=== PATIENT | male | born 1965 | race Caucasian/White ===

== ENCOUNTER → 2017-12-28 | Outpatient (CLI) | payer OTHER ==
--- NOTE | 2017-12-28 23:11 | MR ---
EXAMINATION TYPE: MR knee RT wo con DATE OF EXAM: 12/28/2017 COMPARISON: Outside right knee x-ray December 16, 2017 HISTORY: Rt knee pain, injured 3 weeks ago per patient. TECHNIQUE: Multiplanar, multisequence images of the knee is performed without IV contrast. FINDINGS: MEDIAL MENISCUS: Anterior and posterior horns are intact without tear. LATERAL MENISCUS: Anterior horn is intact without tear. There is truncated appearance to posterior ho rn with focal defect along posterior margin appreciated on sagittal images. Displaced meniscal fragme nt felt present sagittal image 18 in the posterior intercondylar region CRUCIATE LIGAMENTS: The anterior and posterior cruciate ligaments are intact and unremarkable. COLLATERAL LIGAMENTS: The medial collateral ligament and lateral collateral ligament complex are inta ct . Mild fluid signal surrounds medial collateral ligament. EXTENSOR MECHANISM: Visualized quadriceps and patellar tendons are intact. EFFUSION: There is small suprapatellar joint effusion. POPLITEAL CYST: No popliteal/medeiros cyst. TRICOMPARTMENT SPACES: There is mild tricompartment joint space loss. There is mild is tricompartment joint space spurring. CARTILAGE: There is chondromalacia patella involving inferior patellar pole with near full-thickness cartilaginous loss appreciated. There is thinning of articular cartilage medial tibial femoral compar tment. BONE MARROW SIGNAL: No focal abnormal marrow signal is appreciated. OTHER: No additional significant abnormality is appreciated. IMPRESSION: 1. Complex displaced bucket handle type tear posterior horn of medial meniscus. 2. Background mild to moderate tricompartment degenerative changes as detailed above. 3. Small suprapatellar joint effusion. 4. Mild MCL sprain injury.
== END | disposition home or self-care (01) ==
LOC: RADMRIMAIN 16:31
PROVIDERS: ATTEND Orthopaedic Surgery
DX: S83.231A Complex tear of medial meniscus, current injury, right knee, initial encounter (principal); S83.211A Bucket-handle tear of medial meniscus, current injury, right knee, initial encounter

== ENCOUNTER → 2018-01-14 | Outpatient (CLI) | payer OTHER ==
[2018-01-14 09:11] LABS: Basophils # (A) 0.1 k/uL (0-0.2); Basophils % (A) 1 %; Eosinophils # (A) 0.2 k/uL (0-0.7); Eosinophils % (A) 2 %; HCT 45.4 % (39.0-53.0); HGB 15.2 gm/dL (13.0-17.5); Lymphocytes # (A) 2.4 k/uL (1.0-4.8); Lymphocytes % (A) 28 %; MCH 29.8 pg (25.0-35.0); MCHC 33.4 g/dL (31.0-37.0); MCV 89.4 fL (80.0-100.0); Mean Platelet Volume 7.9; Monocytes # (A) 0.5 k/uL (0-1.0); Monocytes % (A) 6 %; Neutrophils % (A) 61 %; Platelet Count 237 k/uL (150-450); RBC 5.08 m/uL (4.30-5.90); WBC 8.3 k/uL (3.8-10.6)
--- NOTE | 2018-01-14 09:14 | XR ---
EXAMINATION TYPE: XR chest 2V DATE OF EXAM: 01/14/2018 COMPARISON: NONE TECHNIQUE: PA and lateral views submitted. HISTORY: Presurgical FINDINGS: The lungs are clear and there is no pneumothorax, pleural effusion, or focal pneumonia. Hypertrophi c and degenerative change of the spine. Hyperinflation suggests COPD. No overt failure. Biapical pleu ral thickening. Atherosclerotic change aorta. IMPRESSION: 1. No acute process.
[2018-01-14 09:28] LABS: Potassium 4.2 mmol/L (3.5-5.1)
== END | disposition home or self-care (01) ==
LOC: LABPAT 08:26
PROVIDERS: ATTEND Orthopaedic Surgery
DX: Z01.818 Encounter for other preprocedural examination (principal); Z01.812 Encounter for preprocedural laboratory examination; M23.91 Unspecified internal derangement of right knee
CPT/HCPCS: 36415; 71046; 80051; 85025; 93005

== ENCOUNTER 2018-01-18 06:41 | Day surgery (SDC) | payer OTHER ==
[2018-01-13 11:21] VITALS: BMI 35.2
--- NOTE | 2018-01-17 09:00 | HP ---
HISTORY AND PHYSICAL CHIEF COMPLAINT: Right knee pain. HISTORY OF PRESENT ILLNESS: The patient is a 52-year-old male who presents with progressive right knee pain after an injury on December 03, 2017. He twisted his knee coming down a ladder. He has had pain, giving way, and swelling ever since. He notes he is limping. He denies previous problems. PAST MEDICAL HISTORY: Significant for hypertension and depression. PAST SURGICAL HISTORY: Negative. CURRENT MEDICATIONS: 1. Adderall. 2. Lisinopril. 3. Ibuprofen. ALLERGIES: He denies drug allergies. FAMILY HISTORY: Significant for cancer. SOCIAL HISTORY: Significant for 1 pack per day tobacco use and social alcohol use. REVIEW OF SYSTEMS: Sixteen point review of systems otherwise reviewed and is noncontributory. PHYSICAL EXAMINATION: On examination, the patient is approximately 6 feet tall, 260 pounds of endomorphic habitus. HEENT exam is nonfocal. Neck is supple. He has painless passive motion of the right hip. Straight leg raise is negative. Active motion right knee -6 to 120 degrees of flexion. He has mild effusion. He is tender about the lateral greater than medial joint line. Collaterals are stable. Carolyn is negative. Jessica's elicits medial and lateral pain. His distal neurovascular exam appears to be intact in the right lower extremity. MRI report for the right knee 12/28/2017 shows a bucket-handle tear of the lateral meniscus. Edema about the MCL is noted as well. IMPRESSION: 1. Right knee internal derangement with symptomatic lateral meniscal tear. 2. Increased body mass index. RECOMMENDATIONS: I talked to the patient at length regarding his treatment options. At this point, he is quite symptomatic and opts to proceed with surgery. We will plan to proceed with arthroscopic evaluation with possible partial lateral meniscectomy. We will likely perform that as an outpatient procedure. Risks and benefits were discussed at length in layman's terms. MMODL / IJN: [id number] /
[~2018-01-18 06:41] MED LIST: DEXAMETHASONE SOD PHOSPHATE 10 MG/ML 1 ML VIAL IV ONE; LACTATED RINGERS 1,000 ML IV SCH; ONDANSETRON 4 MG/2 ML VIAL IVP ONE
[2018-01-18] MEDS ORDERED: LIDOCAINE 1% 20 ML VIAL (10MG/ML) FOR IV START INTRADERMA ONE (07:14)
[2018-01-18] MEDS ORDERED: LIDOCAINE 1% INJ 10MG/ML (20 ML MDV) ONE (07:53)
[2018-01-18] MEDS ORDERED: fentaNYL (PF) 50 MCG/ML 2 ML AMP ONE (07:53)
[2018-01-18] MEDS ORDERED: ALBUTEROL INHALER 60 PUFF/8 GM INHALER INHALATION ONE (07:53)
[2018-01-18] MEDS ORDERED: MIDAZOLAM 2 MG/2 ML VIAL ONE (07:53)
[2018-01-18] MEDS ORDERED: PROPOFOL 10 MG/ML 20 ML VIAL IV ONE (07:53)
[2018-01-18] MEDS ORDERED: SUCCINYLCHOLINE CHLORIDE 100 MG/5 ML SYR IV ONE (07:53)
[2018-01-18] MEDS ORDERED: EPINEPHrine (PF) 1 ML in SODIUM CHLORIDE 0.9% IRRIGATIO 3,000 ML IRRIGATION ONE ×4 (08:01)
--- NOTE | 2018-01-18 08:52 | P.OP ---
Date of Procedure: 01/18/18 Preoperative Diagnosis: Right knee internal derangement Postoperative Diagnosis: The bucket-handle tear right knee lateral meniscus, grade 2 chondral injury distal lateral portion medial femoral condyle, grade 2 chondral injury Procedure(s) Performed: Right knee arthroscopic partial lateral meniscectomy/medial femoral chondrectomy /patellar chondroplasty Anesthesia: BRANDON Surgeon: Abdirahman Bishop Estimated Blood Loss (ml): 10 Pathology: none sent Condition: stable Disposition: PACU Indications for Procedure: The patient's a 52-year-old male who presents with progressive right knee pain and mechanical symptoms after a previous twisting injury. Clinically and by MRI he was noted to have evidence of a bucket-handle tear of the lateral meniscus. A discussion of the risks and benefits of operative intervention was made with the patient. He opted to proceed with surgery. Operative risks to include infection, neurovascular injury, development of blood clots, possible incomplete resolution of symptoms and need for subsequent procedures was discussed. Informed consent was obtained. Operative Findings: As below Description of Procedure: The patient was brought to the operating room, and after induction of general anesthesia I examined the right knee. Collaterals were stable, Carolyn was negative, and posterior drawer was negative. The right lower extremity was then prepped and draped in a normal fashion. A superior lateral portal was made through a 3 mm skin incision superior and lateral to the patella. This was used for outflow. A lateral portal was made through a 5 mm vertical skin incision lateral to the patellar tendon above the joint line. Diagnostic arthroscopy was performed. A medial portal was made through a similar incision medial to the patella tendon above the joint line. On inspection of the medial compartment, the medial meniscus was stable and intact. A grade 2 chondral injury involving the lateral aspect of the distal medial femoral condyle was noted. There was a small loose chondral flap debrided back to stable base with a motorized shaver. The remaining chondral surface was intact. On inspection of the notch, the anterior cruciate ligament was intact. A bucket-handle tear involving the lateral meniscus was noted and was flipped into the notch. This was not amenable to repair. This was debrided back to stable base with straight baskets and a motorized shaver. The remaining lateral meniscus was stable and intact. On inspection patellofemoral articulation, grade 2 chondral injury involving the medial patella facet was noted. There was a loose chondral flap debrided back to stable base with a motorized shaver. The gutters were clear of debris. The knee was then thoroughly irrigated. The portals were closed with Steri-Strips. A sterile dressing was applied in addition to a compression stocking. The patient was awoken from general anesthesia and transferred to recovery room in good condition. Blood loss was estimated at 10 mL. No complications were incurred.
[2018-01-18 09:11] VITALS: TEMP 97
[2018-01-18] MEDS: HYDROmorphone 0.5 MG/0.5 ML SYRINGE IVP PRN ×2 (09:24→09:32)
[2018-01-18] MEDS ORDERED: LACTATED RINGERS 1,000 ML IV ONE (09:47)
[2018-01-18] MEDS ORDERED: HYDROcodone/APAP 5-325MG 1 EACH TAB PO ONE (10:08)
[2018-01-18 10:27] VITALS: RESP 18
[2018-01-18 10:36] VITALS: BP 109/70; PULSE 70
== END 2018-01-18 10:43 | disposition home or self-care (01) ==
LOC: OR 06:41
PROVIDERS: ATTEND Orthopaedic Surgery
DX: S83.251A Bucket-handle tear of lateral meniscus, current injury, right knee, initial encounter (principal); X58.XXXA Exposure to other specified factors, initial encounter; M23.91 Unspecified internal derangement of right knee; I10 Essential (primary) hypertension; F32.9 Major depressive disorder, single episode, unspecified; Z79.1 Long term (current) use of non-steroidal anti-inflammatories (NSAID); Z79.899 Other long term (current) drug therapy; F17.210 Nicotine dependence, cigarettes, uncomplicated
CPT/HCPCS: 29881; J2250; J1100; J0690; J2405; J0171; J2001; J3010; J0330; J2704; J1170

== ENCOUNTER → 2021-01-20 | Outpatient (CLI) | payer MEDICARE, OTHER ==
--- NOTE | 2021-01-21 09:04 | US ---
EXAMINATION TYPE: US soft tissue head/neck DATE OF EXAM: 01/20/2021 COMPARISON: NONE CLINICAL HISTORY: R22.0 SWELLING, MASS AND LUMP. Posterior midline scalp palpable x couple of years a nd enlarging in size, headaches now. US findings at midline posterior scalp palpable: heterogeneous oval mass is noted = 4.5 x 3.8 x 1.2cm . IMPRESSION: There is a 4.5 cm heterogeneous mass in the midline posterior scalp in the region of palpable abnorma lity which is indeterminate on this examination. Neoplasm/malignancy cannot be excluded. Clinical cor relation is recommended.
== END | disposition home or self-care (01) ==
LOC: RADUSWWP 16:39
PROVIDERS: ATTEND Surgery Plastic and Reconstructive Surgery
DX: R22.0 Localized swelling, mass and lump, head (principal)
CPT/HCPCS: 76536

== ENCOUNTER → 2021-02-07 | Outpatient (CLI) | payer OTHER ==
--- NOTE | 2021-02-07 13:44 | CT ---
EXAMINATION TYPE: CT brain w con DATE OF EXAM: 02/07/2021 COMPARISON: None HISTORY: Swelling to the back of the head, without injury, marked by BB's. Tenderness at site occasi onally. CT DLP: 1202.1 mGycm Automated exposure control for dose reduction was used. CONTRAST: CT scan of the head is performed with IV Contrast, patient injected with 100 mL of Isovue 300. FINDINGS: There is no abnormal enhancing mass or midline shift identified. The ventricles and sulci are within normal limits in size. The globes are intact and the visualized sinuses are clear. There is nonspec ific 1.4 x 0.6 cm area of soft tissue density over the area of palpable marker. Could represent a sma ll hematoma or edema. Follow-up to resolution recommended. Calvarium intact. IMPRESSION: There is nonspecific 1.4 x 0.6 cm area of soft tissue density over the area of palpable marker. Could represent a small hematoma or edema. Follow-up to resolution recommended. If the finding fails to re solve consider ultrasound for further evaluation.
--- NOTE | 2021-02-07 16:01 | CT ---
EXAMINATION TYPE: CT cervical spine w con DATE OF EXAM: 02/07/2021 COMPARISON: CT brain same day HISTORY: 55-year-old male Swelling to the back of the head, without injury, marked by BB's. Tenderne ss at site occasionally. TECHNIQUE: Contiguous axial scanning of the cervical spine performed with IV Contrast, patient inject ed with 100 mL of Isovue 300. Coronal/sagittal reconstructions performed. CT DLP: 771 mGycm Automated exposure control for dose reduction was used. FINDINGS: 2 palpable markers along the right paramedian posterior base of the head demarcate an ovoid fat densi ty lesion along the superficial muscular fascia. This measures 3.8 cm wide by 1.8 cm AP by 4.2 cm aircraft accessories mechanic niocaudal. Some internal soft tissue nodularity measuring 1.4 x 0.7 cm is present. Incidental retropharyngeal course of the right ICA. There is moderate degenerative disc disease at C6-C7. Disc osteophyte complex here may cause mild jo-ann rowing of the spinal canal. Assessment is limited due to artifact from the patient's shoulders. Alignment is maintained. No acute fracture seen. Hypertrophic facet arthropathy particularly through throughout the cervical spine on the left. Uncove rtebral joint arthropathy lower cervical spine. Moderate left greater than right neural foraminal stenosis at C6-C7. There appears to be a 1.5 cm hypodense nodule right lobe of the thyroid gland at the lower pole. Thyr oid ultrasound can further evaluate. IMPRESSION: 1. AN OVOID LESION ALONG THE SUPERFICIAL MUSCULAR FASCIA OF THE RIGHT PARAMEDIAN POSTERIOR BASE OF TH E HEAD. THIS MEASURES 4.2 X 3.8 X 1.8 CM AND IS PRIMARILY FAT DENSITY BUT ALSO CONTAINS AN INTERNAL 1 .4 CM SOFT TISSUE NODULE. CONSIDER ATYPICAL LIPOMATOUS TUMOR. IF THE FINDING IS NEW OR INCREASING IN SIZE, LOW-GRADE LIPOSARCOMA IS ALSO A DIFFERENTIAL CONSIDERATION. CONSIDER ORTHOPEDIC ONCOLOGY REFERR AL FOR FURTHER WORKUP AND MANAGEMENT. 2. MODERATE SPONDYLOTIC CHANGE C6-C7 WITH MILD SPINAL CANAL STENOSIS AND MODERATE LEFT GREATER THAN R IGHT NEURAL FORAMINAL STENOSIS HERE. 3. POSSIBLE 1.5 CM RIGHT THYROID LOBE NODULE. THYROID ULTRASOUND COULD FURTHER EVALUATE.
== END | disposition home or self-care (01) ==
LOC: RADCTMAIN 11:33
PROVIDERS: ATTEND Surgery Plastic and Reconstructive Surgery
DX: M79.9 Soft tissue disorder, unspecified (principal); M79.89 Other specified soft tissue disorders; M48.02 Spinal stenosis, cervical region; M47.812 Spondylosis without myelopathy or radiculopathy, cervical region; M99.71 Connective tissue and disc stenosis of intervertebral foramina of cervical region
CPT/HCPCS: 72126; 70460; Q9967

== ENCOUNTER → 2021-02-12 | Outpatient (CLI) | payer OTHER ==
--- NOTE | 2021-02-12 15:20 | US ---
EXAMINATION TYPE: US thyroid st tissue head/neck DATE OF EXAM: 02/12/2021 COMPARISON: CT CLINICAL HISTORY: E04.1 Thyroid Nodule. Thyroid nodule visualized on CT GLAND SIZE: Right Lobe: 6.7 x 2.0 x 2.3 cm Overall Parenchyma: homogenous Left Lobe: 6.6 x 2.3 x 2.2 cm Overall Parenchyma: homogeneous Isthmus Thickness: 0.3 cm NODULES RIGHT: # of nodules measured on right: 1 1. 2.0 X 1.3 x 1.9 cm, lower, mixed cystic and solid, hypoechoic nodule, which is wider than tall, with smooth margins, without echogenic foci. Prior size: 1.5 cm Visualized on prior CT LEFT: # of nodules measured on left: 2 1. 1.4 X 0.9 x 1.1 cm, lower, solid or almost completely solid, hypoechoic nodule, which is wider t suggs tall, with smooth margins, with echogenic foci. This is considered highly suspicious, TI-RADS 5. Biopsy recommended. Prior size: No prior 2. 0.6 X 0.5 x 0.6 cm, mid, solid or almost completely solid, isoechoic nodule, which is wider dalton n tall, with ill-defined margins, without echogenic foci. Prior size: No prior ISTHMUS: # of nodules measured in the isthmus: 1. 0.6 X 0.5 x 0.7 cm solid or almost completely solid, hypoechoic nodule, which is wider than tall , with smooth margins, without echogenic foci. Prior size: No prior Bilateral neck scanned, no evidence of lymphadenopathy. Enlarged thyroid bilaterally with nodules bi laterally. IMPRESSION: Highly suspicious left lobe nodule. Biopsy recommended. 2017 ACR TI-RADS LEVEL: TI-RADS 5 - Highly Suspicious: Follow if > 0.5 cm, FNA if > 1.0 cm *Highest TI-RADS level nodule reported
[2021-02-12 17:26] LABS: T4, Free (Free Thyroxine) 1.13 ng/dL (0.78-2.19)
== END | disposition home or self-care (01) ==
LOC: RADUSWWP 14:44
PROVIDERS: ATTEND Surgery Plastic and Reconstructive Surgery
DX: E04.1 Nontoxic single thyroid nodule (principal)
CPT/HCPCS: 76536; 84439; 84443

== ENCOUNTER 2021-02-21 06:20 | Day surgery (SDC) | payer OTHER ==
[2021-02-19 13:47] VITALS: BMI 38.6
[~2021-02-21 06:20] MED LIST changes: -DEXAMETHASONE SOD PHOSPHATE 10 MG/ML 1 ML VIAL IV ONE; +DEXAMETHASONE SOD PHOSPHATE 4 MG/ML 1 ML VIAL IV ONE; +HEPARIN SODIUM,PORCINE/PF 5,000 UNIT/0.5 ML SYRINGE SQ PRN; +LIDOCAINE 1% (10MG/ML) FOR IV START INTRADERMA PRN; +ceFAZolin 3 GM in SODIUM CHLORIDE 0.9% 100 ML IVPB PRN
[2021-02-21] MEDS ORDERED: fentaNYL (PF) 50 MCG/ML 2 ML AMP IV PRN (07:00)
[2021-02-21] MEDS ORDERED: GLYCOPYRROLATE 0.2 MG/ML 2 ML VIAL ONE (07:24)
[2021-02-21] MEDS ORDERED: ROCURONIUM 10 MG/ML (5 ML VIAL) IV ONE (07:24)
[2021-02-21] MEDS ORDERED: ALBUTEROL INHALER 60 PUFF/8 GM INHALER (MHU) INHALATION ONE (07:24)
[2021-02-21] MEDS ORDERED: PHENYLEPHRINE-0.9% NACL SYG 1,000 MCG/10 ML SYRINGE ONE (07:24)
[2021-02-21] MEDS ORDERED: LIDOCAINE 1% INJ 10MG/ML (20 ML MDV) ONE (07:24)
[2021-02-21] MEDS ORDERED: fentaNYL (PF) 50 MCG/ML 2 ML AMP ONE (07:24)
[2021-02-21] MEDS ORDERED: PROPOFOL 10 MG/ML 20 ML VIAL IV ONE (07:24)
[2021-02-21] MEDS ORDERED: MIDAZOLAM 2 MG/2 ML VIAL ONE (07:24)
[2021-02-21] MEDS ORDERED: NEOSTIGMINE 1 MG/ML 10 ML VIAL ONE (07:24)
[2021-02-21] MEDS ORDERED: SUCCINYLCHOLINE CHLORIDE 100 MG/5 ML SYR IV ONE (07:24)
--- NOTE | 2021-02-21 07:31 | P.GSHP ---
History of Present Illness H&P Date: 02/21/21 CHIEF COMPLAINT: Scalp tumor HISTORY OF PRESENT ILLNESS: The patient is a 55 year-old male with over 6 month history of growing painful posterior scalp mass. He has had additional diagnostic imaging. He presents today for surgical excision. PAST MEDICAL HISTORY: Please see list. PAST SURGICAL HISTORY: Please see list. MEDICATIONS: Please see list. ALLERGIES: Please see list. SOCIAL HISTORY: No illicit drug use FAMILY HISTORY: No reports of Crohn disease or ulcerative colitis. REVIEW OF ORGAN SYSTEMS: CONSTITUTIONAL: No reports of fevers or chills. GI: Denies any blood in stools or constipation. PHYSICAL EXAM: VITAL SIGNS: Stable SKIN: Well perfused. Good skin turgor. 5 cm lesion overlying the occiput of the posterior scalp. Musculoskeletal: No clubbing cyanosis or edema GENERAL: Well developed and in no acute distress. Pleasant. HEENT: No sclera icterus. Extraocular movements grossly intact. Moist buccal mucosa. Head is atraumatic, normocephalic. Hears conversational speech. No nasal drainage. NECK: Supple without lymphadenopathy. No JV distention. CHEST: Non-labored respirations and equal bilateral excursions. CARDIOVASCULAR: Regular rate and rhythm. Palpable 2+ radial pulses. ABDOMEN: Soft. Non-tender. Nondistended. NEUROLOGIC: No focal or lateralizing signs. PSYCH: Appropriate affect. Alert and oriented to person, place and time. ASSESSMENT: 1. Posterior scalp tumor, over 5 cm PLAN: 1. Will proceed of excision of posterior scalp tumor 2. DVT prophylaxis. 3. Antibiotic prophylaxis. 4. Time of recovery, at least one week. 5. Benefits and risks including numbness, decreased sensation, pain, cosmetic deformity were reviewed Past Medical History Past Medical History: Hypertension, Musculoskeletal Disorder Additional Past Medical History / Comment(s): Chronic back pain, NODULES ON THYROID History of Any Multi-Drug Resistant Organisms: None Reported Past Surgical History: Orthopedic Surgery Additional Past Surgical History / Comment(s): Rhinoplasty; Hemorrhoidectomy, RIGHT ARTHROSCOPIC Past Anesthesia/Blood Transfusion Reactions: No Reported Reaction Smoking Status: Current every day smoker - Past Family History Mother Family Medical History: Cancer Additional Family Medical History / Comment(s): Breast CA Medications and Allergies Home Medications Medication Instructions Recorded Confirmed Type Dextroamphetamine/Amphetamine 30 mg PO BID 01/13/18 02/21/21 History [Adderall] Ibuprofen [Motrin] 800 mg PO BID 01/13/18 02/21/21 History Allergies Allergy/AdvReac Type Severity Reaction Status Date / Time No Known Allergies Allergy Verified 02/19/21 13:24 Surgical - Exam Vital Signs Temp Pulse Resp BP Pulse Ox 97.2 F L 99 16 171/93 95 02/21/21 06:41 02/21/21 06:41 02/21/21 06:41 02/21/21 06:41 02/21/21 06:41
[2021-02-21] MEDS ORDERED: LIDOCAINE 1%-EPI 1:100,000 20 ML VIAL SQ ONE (08:12)
[2021-02-21] MEDS ORDERED: LACTATED RINGERS 1,000 ML IV ONE (08:39)
[2021-02-21] MEDS ORDERED: BACITRACIN ZINC 500 UNIT/GM OINT 28.4 GM TUBE TOPICAL ONE (08:56)
[2021-02-21 09:32] VITALS: TEMP 97.1
[2021-02-21 09:37] VITALS: RESP 16
--- NOTE | 2021-02-21 09:38 | P.OP ---
Date of Procedure: 02/21/21 Description of Procedure: SURGEON: MARYBEL SOSA MD PREOPERATIVE DIAGNOSES: 1. Lower occipital scalp tumor 2. Morbid obesity due to excess calories, BMI 38.3 3. Hypertensive heart disease 4. Depressive disorder 5. Tobacco abuse disorder 6. Attention deficit disorder with ADHD 7. Chronic back pain POSTOPERATIVE DIAGNOSES: 1. Lower occipital scalp tumor, 5 cm 2. Morbid obesity due to excess calories, BMI 38.3 3. Hypertensive heart disease 4. Depressive disorder 5. Tobacco abuse disorder 6. Attention deficit disorder with ADHD 7. Chronic back pain PROCEDURES PERFORMED: 1. Excision of occipital scalp tumor, 5 cm x 3.5 cm deep subfascial/intramuscular 2. Intermediate closure scalp incision 5.5 cm Anesthesia: GETA, local Estimated Blood Loss (ml): 5 Pathology: other (scalp mass) Condition: stable Disposition: same day COMPLICATIONS: None. Operative Findings: 1. Excision of deep subfascial fascial tumor 5 cm to the skull INDICATIONS: The patient is a 55-year-old male who presents with posterior scalp tumor. 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 Diagnostic studies were performed to confirm lipomas of the scalp. Benefits and risks of surgical intervention were described including bleeding, infection, injury to the neurovascular bundle. Informed consent was obtained. DESCRIPTION OR PROCEDURE: In the preoperative area, the area of concern was marked with indelible marker. Patient was brought into the operating room. After general induction, he was positioned in prone position. The scalp was prepped and draped in a standard sterile fashion. Timeout protocol was confirmed with the surgical team regarding the patient's name, procedure to be performed including preoperative medications. DVT prophylaxis was confirmed. A field block was placed of the occipital scalp. A longitudinal incision using #15 blade was made along the marking into the deep subcutaneous tissue. Electro- Bovie cautery was used to incise through the fascia with dissection and elevation of the mass. The tumor extended to the length of the occipital bone and excised. Size of the tumor 5 cm x 3.5 cm with fibrous and subcutaneous tissue. The incision was reapproximated using 0 Vicryl for the fascia and subcutaneous tissue. Final running suture of 3-0 Prolene was placed to completely close the dermis. The skin was cleansed with hydrogen peroxide followed by bacitracin ointment along the closure. Bacitracin ointment, 4 x 4 and Tegaderm was placed to cover the incision At the end of the procedure, needle, sponge, and instrument count was verified correct by surgical instruments inspector. The patient tolerated the procedure well. Plan - Discharge Summary Discharge Rx Participant: Yes New Discharge Prescriptions: New Acetaminophen Tab [Tylenol Tab] 1,000 mg PO Q6HR PRN #30 tablet PRN Reason: Pain Ibuprofen 800 mg PO Q8HR PRN #30 tablet PRN Reason: Pain Continue Dextroamphetamine/Amphetamine [Adderall] 30 mg PO BID Ibuprofen [Motrin] 800 mg PO BID Discharge Medication List Dextroamphetamine/Amphetamine [Adderall] 30 mg PO BID 01/13/18 [History] Ibuprofen [Motrin] 800 mg PO BID 01/13/18 [History] Acetaminophen Tab [Tylenol Tab] 1,000 mg PO Q6HR PRN #30 tablet 02/21/21 [Rx] Ibuprofen 800 mg PO Q8HR PRN #30 tablet 02/21/21 [Rx] Follow up Appointment(s)/Referral(s): Marybel Sosa MD [STAFF PHYSICIAN] - 02/27/21 Patient Instructions/Handouts: Scalp Lesion (GEN) Activity/Diet/Wound Care/Special Instructions: DO NOT REMOVE DRESSING until seen by surgeon, next week. Minimize moderate rotation of the neck to shoulder for 1 week, 02/28/21 KEEP DRESSING DRY. Use ice along the dressing to minimize bruising. May gently wash around the dressing with soap and water. Please take Tylenol, Aleve, or ibuprofen scheduled for next 2-3 days. Discharge Disposition: HOME SELF-CARE
[2021-02-21 10:02] VITALS: BP 133/84; PULSE 88
--- NOTE | 2021-02-21 10:08 | P.PN ---
Progress Note - Text Progress Note Date: 02/21/21 Patient reassessed in Phase II recovery. Reports improvement of his neck pain. Reports resolved neck strain. No neurological deficits. Sensation intact. Patient able to rotate his neck left shoulder to right shoulder and chest without difficulty. Dressing instructions reviewed. Patient pleased with surgical outcome.
== END 2021-02-21 10:22 | disposition home or self-care (01) ==
LOC: OR 06:20
PROVIDERS: ATTEND Surgery Plastic and Reconstructive Surgery
DX: D49.2 Neoplasm of unspecified behavior of bone, soft tissue, and skin (principal); E66.01 Morbid (severe) obesity due to excess calories; Z68.38 Body mass index [BMI] 38.0-38.9, adult; I11.9 Hypertensive heart disease without heart failure; F32.9 Major depressive disorder, single episode, unspecified; F90.9 Attention-deficit hyperactivity disorder, unspecified type; F17.200 Nicotine dependence, unspecified, uncomplicated; G89.29 Other chronic pain; M54.9 Dorsalgia, unspecified; E04.1 Nontoxic single thyroid nodule; F12.90 Cannabis use, unspecified, uncomplicated; Z79.1 Long term (current) use of non-steroidal anti-inflammatories (NSAID); Z80.3 Family history of malignant neoplasm of breast
CPT/HCPCS: 21012; 88304; J2250; J1100; J2710; J0690; J2405; J2001; J3010; J2370; J0330; J2704; J1644

== ENCOUNTER 2021-03-12 12:54 | Day surgery (SDC) | payer MEDICARE, OTHER ==
[2021-03-12 13:16] VITALS: TEMP 98.5
[2021-03-12 14:59] VITALS: RESP 14
[2021-03-12 15:13] VITALS: BP 163/84; PULSE 86
--- NOTE | 2021-03-12 15:16 | US ---
EXAMINATION TYPE: US FNA thyroid first lesion DATE OF EXAM: 03/12/2021 COMPARISON: NONE HISTORY: Thyroid nodule. Maximal barrier technique was utilized. After informed consent, skin overlying the left lobe thyroid nodule was localized with ultrasound and the overlying skin prepped and draped. Ultrasound was utili zed using sterile technique. Lidocaine was used for local anesthesia. Five passes with a 25-gauge ne edle were made into the nodule and aspirated specimen was submitted to cytology. Following the proce dure hemostasis achieved. No immediate complication. The patient discharged in stable condition. IMPRESSION: STATUS POST ULTRASOUND GUIDED FINE NEEDLE ASPIRATION OF THYROID NODULE, PATHOLOGY IS PEND ING. THIS PROCEDURE WAS PERFORMED BY THE UNDERSIGNED.
== END 2021-03-12 15:20 | disposition home or self-care (01) ==
LOC: RADPROMAIN 12:54
PROVIDERS: ATTEND Surgery Plastic and Reconstructive Surgery
DX: E04.1 Nontoxic single thyroid nodule (principal)
CPT/HCPCS: 10005; 88173; 88305

== ENCOUNTER → 2021-06-04 | Outpatient (CLI) | payer OTHER ==
--- NOTE | 2021-06-05 10:38 | MR ---
MRI CERVICAL SPINE: CLINICAL HISTORY: Neck pain since February 2021 radiating down both hands into fingers. TECHNIQUE: Multiplanar, multisequence imaging of the cervical spine is performed without IV contrast. COMPARISON: Prior MRI cervical spine September 18, 2014. Cervical spine x-ray April 11, 2021 FINDINGS: Sagittal images of the cervical spine show the craniocervical junction to remaining within normal limits. The cervical and upper thoracic spinal cord remains normal in course, caliber, and si gnal. Subtle slight grade 1 retrolisthesis C6 on C7 on current study. Mild disc space narrowing and s purring C6-C7 level redemonstrated otherwise the vertebral body and intravertebral disk heights are n ormal. The bone marrow signal intensity remains within normal limits. Axial images show C2-C3 level to remain within normal limits. Axial images at C3-C4 level show uncovertebral facet degenerative changes causing mild bilateral neur al foraminal narrowing. Axial images at C4-C5 and C5-C6 levels remain within normal limits. Axial images at C6-C7 level shows spondylolisthesis with broad-based posterior disc protrusion effaci ng anterior thecal sac and causing moderate bilateral neural foraminal narrowing. No significant pate ge 4 progression from prior study. Axial images at C7-T1 level remain within normal limits. IMPRESSION: Degenerative changes C6-C7 level redemonstrated without significant interval degenerative progression from 2015 MRI.
== END | disposition home or self-care (01) ==
LOC: RADMRIMAIN 21:34
PROVIDERS: ATTEND Orthopaedic Surgery
DX: M50.323 Other cervical disc degeneration at C6-C7 level (principal)
CPT/HCPCS: 72141

== ENCOUNTER → 2021-12-29 | Outpatient (CLI) | payer OTHER ==
[2021-12-29 08:21] VITALS: BP 187/119; PULSE 85; RESP 18; TEMP 98
--- NOTE | 2021-12-29 08:21 | P.PAINPG ---
PQRS Measure Charge Sheet Comment: HISTORY OF PRESENT ILLNESS: 56 yr old male as a referral from Dr. Sotomayor for severe and chronic cervical pain secondary to DDD and neuroforaminal stenoses for evaluation. Patient states pain started in August 2021, is 2 out of 10 in intensity, sharp, achy in the mid to lower aspects of his cervical spine with radiation of pain to the shoulders and hands. Pain is provoked with lifting, rotation and lateral flexion of the neck. States that his pain is greater on the right side than the left but alternates. Pain is relieved with medications (Tylenol OTC, Motrin OTC, mobility), topicals, ice, heat, 4 sessions of physical therapy in May 2021 which increased pain, home exercise regimen, reclining and rest. PMH: HTN, Thyroid Nodule PSH: Rhinoplasty, Hemorrhoidectomy, R Arthroscopic Knee surgery SH: Daily tobacco user, FH: Mother- Breast CA All: NKDA Meds: See list REVIEW OF ORGAN SYSTEMS: CONSTITUTIONAL: No fevers or chills. No recent weight loss. HEENT: No visual acuity loss, eye pain, difficulties with hearing. No nosebleeds. No difficulty swallowing. RESPIRATORY: Denies any troubles with breathing or dyspnea on exertion. CARDIOVASCULAR: Denies any chest pain, palpitations, or recent heart attacks. GASTROINTESTINAL: Denies fatty food intolerance. Has change in bowel habits and gas bloat. GENITOURINARY: Denies any blood in urine. Has increased urinary frequency. NEUROLOGICAL: + numbness and tingling along the distal extremities. No seizure disorders or headaches. MUSCULOSKELETAL: + back pain SKIN: No skin cancer. No rash. PSYCHIATRIC: Denies current depression or suicidal thoughts. ENDOCRINE: Denies current thyroid disorders. Denies any blood sugar glucose intolerance. HEME/LYMPHATIC: Denies any lumps and bumps around the neck. History of deep venous thrombosis. ALLERGY/IMMUNOLOGY: No immunoglobulin therapy. No immune deficiencies. BREAST: Denies current breast lumps, pain or nipple discharge. Physical Examinations : Constitutional : Cooperative , not in acute distress . HEENT: Neck supple. No Lymphadenopathy. Normal thyroid size . Eyes no ptosis , no icterus, no photophobia . Hearing intact. Normal oropharynx. No Thrush. Respiratory : Chest clear to auscultations bilaterally. No wheezing. No rhonchi. Cardiovascular : Regular rate and rhythm , S1 / S2. No S3 . No S4. Gastrointestinal : Abdomen soft. No tenderness. Bowel sounds x 4. No organomegaly . Genitourinary : Deferred. Neurologic : Cranial nerve II to XII intact. No focal neurological deficits. Psychiatric : alert & oriented x 3. Matching mood & appropriate affect. Judgment & insight intact. Lymphatic No Lymphadenopathy. Musculoskeletal : Cervical Spine Motor strength in the deltoid and biceps: Normal right side. Normal Left side Motor strength biceps and the wrist extensors: Normal right side . Normal left side Motor strength in the triceps muscle: Normal right side. Normal left side Deep tendon reflexes: Normal at the biceps. Normal at Brachioradialis. Normal at triceps Vertebral body tenderness to palpation over C6 Cervical facet loading test: positive bilaterally Spurling test: positive bilaterally Neck distraction test: positive bilaterally Lou sign: positive bilaterally Lumbar spine Motor strength lower extremities ,thigh and legs 5/5 Right side , 5/5 Left side Deep tendon reflexes : Normal Knee Jerk. Normal Ankle Jerk Vertebral body tenderness over Lumbar facet Loading Test: positive Right / positive Left Range of motion of the lumbar spine Flexion 30 degrees, extension 10 degrees Straight Leg Raise test: Left/ Right positive at degree Chelsey test: positive right / positive left. Severe tenderness over the Sacroiliac joint on the Right / Left sides Gaenslen test: positive bilaterally Seated flexion test: positive bilaterally. Sacral spine : Severe tenderness over the Sacroiliac joint: right side / left side Range of motion: Flexion of the lumbar spine <60 degrees Range of motion: Extension of the lumbar spine <20 degrees Gaenslen's Test positive Jim's Test positive Chelsey test: positive right side / left side Thigh Thrust Test Sacral Thrust Test Imaging: MRI without contrast of the cervical spine from 06/04/21 reviewed Assessment/ Plan : Cervical spondylosis Recommendation of MAICOL C6-C7. May need a series of injections, up to 3 within a six-month timeframe, for optimal pain relief. Risks, benefits of procedure discussed and patient verbalized understanding. Denies aspirin or anti- coagulant use or medical history of diabetes. All questions answered. I have spent greater than 50 minutes on patient care today. Dr Radford was available by phone for the evaluation of this patient. The time was used to review the medical records including relevant urine studies and Prescription history (MAPs), review of the available imaging, evaluation and examination of the patient, coordination of care with the medical staff and if applicable referring physicians, as well as creation of the medical record PQRS Narrative: Smoking Status Current every day smoker Home Medications: Ambulatory Orders Dextroamphetamine/Amphetamine [Adderall] 30 mg PO BID 01/13/18 Controlled Substance Measures - Controlled Substance Measures Is patient prescribed a controlled substance at discharge?: No
== END ==
LOC: PNWHC3 07:43
PROVIDERS: ATTEND Specialist
DX: M47.812 Spondylosis without myelopathy or radiculopathy, cervical region (principal); M50.30 Other cervical disc degeneration, unspecified cervical region; I10 Essential (primary) hypertension; F17.200 Nicotine dependence, unspecified, uncomplicated
CPT/HCPCS: 99211

== ENCOUNTER 2022-02-17 06:50 | Day surgery (SDC) | payer OTHER ==
[2022-02-13 10:54] VITALS: BMI 38.0
[2022-02-17] MEDS ORDERED: LACTATED RINGERS 1,000 ML IV SCH (07:00)
[2022-02-17 07:14] VITALS: TEMP 97.4
--- NOTE | 2022-02-17 07:28 | P.PCN ---
Date of Procedure: 02/17/22 Procedure(s) Performed: C6-C7 cervical epidural steroid injection Description of Procedure: PROCEDURE 1. Cervical epidural steroid injection under fluoroscopic guidance, C6-C7 2. Cervical epidurogram. PREOPERATIVE DIAGNOSIS: Cervical radiculopathy POSTOPERATIVE DIAGNOSIS: Cervical radiculopathy Imaging: Fluoroscopy was used, images where saved to the medical record ANESTHESIA: Medication Administered by: None Sedation Type: Local Sedation Supervision start time: Sedation Supervision end time: PROCEDURE DESCRIPTION / TECHNIQUE: The patient was seen and identified in the preoperative area. Risks, benefits, and alternatives were discused with the patient and the patient has consented to the procedure. Risks of the procedure include potential for bleeding, infection, nerve damage, and incomplete pain relief were discussed with the patient. All questions were answered for the patient Patient was taken to the OR and time out was completed. The patient was placed in the prone position on the procedure table. A pillow was placed under the patients chest to increase the cervical interlaminar space. The cervical area was prepped and draped in the usual sterile fashion. Vital signs were closely monitored during the procedure. Using anterior-posterior fluoroscopy, the C6-C7 interlaminar space was identified and the skin over this site was marked and then infiltrated with 1% lidocaine subcutaneously. Subsequently, a 20-gauge 3-1/2-inch Tuohy epidural needle was inserted and advanced toward the epidural space by means of the [id number] technique and guided by AP and lateral fluoroscopy. The correct needle position in the epidural space was verified with the injection of 1 mL of the water soluble contrast dye Isovue-180 and observing an excellent epidurogram with the epidural spread of the dye, after negative aspiration for blood and CSF and in the absence of paresthesias. Again after negative aspiration, a mixture containing 10 mg Dexamethasone and 2 ml of preservative- free normal saline injected and a washout of epidurogram was seen. Needle was withdrawn intact, skin was cleansed, and bandages were applied. Complications: none. Disposition: patient was placed in supine position and transferred to the recovery room area in stable condition and there was no evidence of upper or lower extremity motor or sensory deficit after the procedure patient was discharged from recovery room after discharge criteria met and home discharge instructions was given by the staff and patient will follow with the pain as directed.
[2022-02-17] MEDS ORDERED: DEXAMETHASONE SOD PHOSPHATE 10 MG/ML 1 ML VIAL ONE (07:36)
[2022-02-17] MEDS ORDERED: IOPAMIDOL M200 10 ML VIAL ONE (07:36)
[2022-02-17 08:06] VITALS: BP 109/75; PULSE 63; RESP 16
--- NOTE | 2022-02-17 08:26 | FL ---
EXAMINATION TYPE: FL guided pain mgmt statistic DATE OF EXAM: 02/17/2022 HISTORY: Fluoroscopy time 5 seconds of fluoroscopy provided. IMPRESSION: 1. Fluoroscopy time.
== END 2022-02-17 08:10 | disposition home or self-care (01) ==
LOC: ORPAIN 06:50
PROVIDERS: ATTEND Hospitalist
DX: M54.12 Radiculopathy, cervical region (principal); Z79.899 Other long term (current) drug therapy; Z87.891 Personal history of nicotine dependence; Z80.3 Family history of malignant neoplasm of breast
CPT/HCPCS: 62321; J1100; Q9966

== ENCOUNTER → 2022-03-09 | Outpatient (CLI) | payer OTHER ==
[2022-03-09 08:07] VITALS: BP 164/112; PULSE 84; RESP 18; TEMP 98
--- NOTE | 2022-03-09 12:35 | P.PAINPG ---
PQRS Measure Charge Sheet Comment: A 56 yr old male with a history of severe and chronic low back pain secondary to lumbar degenerative disc diseases and lumbar spondylosis with facet arthropathy presents today for evaluation s/p NICO C6-C7. Pt states he experienced 20% pain relief s/p procedure. Pain level is currently at 2/10 in intensity, constant, sore/ achy in the base of his neck w shooting towards BL shoulders and UEs. Pain escalates as high as 10/10 in intensity by activity throughout the day. Pain is alleviated with PT x 4 wks 4-5 mo ago which was stopped due to a personal illness, massages by his , reclining, heat, ice, repositioning and rest. Interventional pain procedures completed include NICO C6-C7 Patient is currently on Mobic, Tylenol, topicals Patient denies any side effects of the medication(s), denies excessive drowsiness or sleepiness, denies suicidal ideation and reports that the current pain medication is helping to control the pain and improve activities of daily living. Patient denies any motor or sensory deficits. Patient denies any fever or night sweats, denies any change in the bowel movements or urination. Physical Examination: -Constitutional: Cooperative. Not in acute distress . - Neurologic: Cranial nerve II to XII intact. No focal neurological deficits. - Psychatric: Alert & oriented x 3. Matching mood & appropriate affect. Judgment and insight intact. - Musculoskeletal: Cervical spine: Muscle bulk/ tone/ strength in the bilateral upper extremities normal Vertebral body tenderness to palpation over C5, C6 Spurling test positive Distraction test positive Facet loading test positive Thoracic spine Muscle bulk / tone/ strength in the bilateral paraspinal muscles normal Vertebral body tender to palpation over Facet loading test positive Lumbar spine: Motor bulk/ tone/ strength lower extremities , thigh and legs : 5/5 Deep tendon reflexes : Normal Knee Jerk. Normal Ankle Jerk . Vertebral body tenderness to palpation over Lumbar Facet Loading Test positive Straight Leg Raise: positive at 30 degrees right side/ left side Gaenslen's Test positive Sacral spine : Severe tenderness over the Sacroiliac joint: right side / left side Range of motion: Flexion of the lumbar spine <60 degrees Range of motion: Extension of the lumbar spine <20 degrees Gaenslen's Test positive Jim's Test positive Chelsey test: positive right side / left side Thigh Thrust Test Sacral Thrust Test Assessment and plan: Chronic low back pain secondary to lumbar degenerative disc disease , lumbar spondylosis with facet arthropathy without myelopathy Pt will follow up w Dr Sotomayor whom stated that ACDF would treat his symptoms. He also will get a 2nd opinion about MBBs/ RFA and implantable neurostimulators. Risks, benefits of procedure discussed and pt verbalized understanding. Denies anticoagulant use or medical history of diabetes. All patient questions answered MAPS reviewed and it was appropriate. I have spent less than 30 minutes on patient care today. Dr Radford was available by phone for the evaluation of this patient. The time was used to review the medical records including relevant urine studies and Prescription history (MAPs), review of the available imaging, evaluation and examination of the patient, coordination of care with the medical staff and if applicable referring physicians, as well as creation of the medical record - Pain Location Lower Neck Non-Pharmacological Interventions: Heat, Ice, Inactivity, Massage, Physical Therapy, Position/Reposition, Sitting, Stretching Pharmacological Interventions: Epidural, PRN Medication PQRS Narrative: Smoking Status Current every day smoker Hx Alcohol Use (MH) Yes: ONCE A WEEK Home Medications: Ambulatory Orders Dextroamphetamine/Amphetamine [Adderall] 30 mg PO BID 01/13/18 amLODIPine [Norvasc] 5 mg PO DAILY 02/13/22 Controlled Substance Measures - Controlled Substance Measures Is patient prescribed a controlled substance at discharge?: No
== END ==
LOC: PNWHC3 07:21
PROVIDERS: ATTEND Specialist
DX: M51.36 Other intervertebral disc degeneration, lumbar region (principal); M47.816 Spondylosis without myelopathy or radiculopathy, lumbar region; G89.29 Other chronic pain; Z87.891 Personal history of nicotine dependence
CPT/HCPCS: 99211

== ENCOUNTER → 2022-03-30 | Outpatient (CLI) | payer OTHER ==
[2022-03-30 15:14] VITALS: BP 156/94; PULSE 89; RESP 18; TEMP 98.2
--- NOTE | 2022-03-30 15:17 | P.PAINPG ---
PQRS Measure Charge Sheet Comment: A 56 yr old male with a history of severe and chronic neck pain secondary to cervical degenerative disc diseases and spondylosis with facet arthropathy without myelopathy presents today for neck pain. Pain level is currently at 2/10 in intensity, constant, localized in the R lower cervical spine, dull/ achy in character w shooting towards the R shoulder. Pain is provoked as high as 8/10 in intensity by hyperextension and rotation. Pain is alleviated with PT x 7 wks in Jun 2021 which provoked pain, home stretching regimen as tolerated, massages at home, heat, ice, meds (Lyrica, Ibuprofen), topicals, repositioning and rest. Interventional pain procedures completed include NICO C6-7 x1. Patient is currently on Lyrica and Ibuprofen prn. Patient denies any side effects of the medication(s), denies excessive drowsiness or sleepiness, denies suicidal ideation and reports that the current pain medication is helping to control the pain and improve activities of daily living. Patient denies any motor or sensory deficits. Patient denies any fever or night sweats, denies any change in the bowel movements or urination. Physical Examination: -Constitutional: Cooperative. Not in acute distress . - Neurologic: Cranial nerve II to XII intact. No focal neurological deficits. - Psychatric: Alert & oriented x 3. Matching mood & appropriate affect. Judgment and insight intact. - Musculoskeletal: Cervical spine: Muscle bulk/ tone/ strength in the bilateral upper extremities normal Vertebral body tenderness to palpation over C6 Spurling test positive Distraction test positive Facet loading test positive Thoracic spine Muscle bulk / tone/ strength in the bilateral paraspinal muscles normal Vertebral body tender to palpation over Facet loading test positive Lumbar spine: Motor bulk/ tone/ strength lower extremities , thigh and legs : 5/5 Deep tendon reflexes : Normal Knee Jerk. Normal Ankle Jerk . Vertebral body tenderness to palpation over Lumbar Facet Loading Test positive Straight Leg Raise: positive at 30 degrees right side/ left side Gaenslen's Test positive Sacral spine : Severe tenderness over the Sacroiliac joint: right side / left side Range of motion: Flexion of the lumbar spine <60 degrees Range of motion: Extension of the lumbar spine <20 degrees Gaenslen's Test positive Jim's Test positive Chelsey test: positive right side / left side Thigh Thrust Test Sacral Thrust Test Assessment and plan: Chronic neck pain secondary to cervical degenerative disc disease , spondylosis with facet arthropathy without myelopathy Recommendation of R C6-C7 Selective Nerve Block. May need a series of injections for optimal pain relief. Risks, benefits of procedure discussed and pt verbalized understanding. Denies anticoagulant use or medical history of diabetes. All patient questions answered MAPS reviewed and it was appropriate. I have spent less than 30 minutes on patient care today. Dr Radford was available by phone for the evaluation of this patient. The time was used to review the medical records including relevant urine studies and Prescription history (MAPs), review of the available imaging, evaluation and examination of the patient, coordination of care with the medical staff and if applicable referring physicians, as well as creation of the medical record PQRS Narrative: Smoking Status Current every day smoker Hx Alcohol Use (MH) Yes: ONCE A WEEK Home Medications: Ambulatory Orders Dextroamphetamine/Amphetamine [Adderall] 30 mg PO BID 01/13/18 amLODIPine [Norvasc] 5 mg PO DAILY 02/13/22 Controlled Substance Measures - Controlled Substance Measures Is patient prescribed a controlled substance at discharge?: No
== END ==
LOC: PNWHC3 13:51
PROVIDERS: ATTEND Specialist
DX: M47.22 Other spondylosis with radiculopathy, cervical region (principal); M50.10 Cervical disc disorder with radiculopathy, unspecified cervical region; G89.29 Other chronic pain; F17.200 Nicotine dependence, unspecified, uncomplicated
CPT/HCPCS: 99211

== ENCOUNTER 2022-05-07 10:38 | Day surgery (SDC) | payer OTHER ==
[2022-05-05 16:12] VITALS: BMI 39.3
[~2022-05-07 10:38] MED LIST changes: -DEXAMETHASONE SOD PHOSPHATE 4 MG/ML 1 ML VIAL IV ONE; -HEPARIN SODIUM,PORCINE/PF 5,000 UNIT/0.5 ML SYRINGE SQ PRN; -LIDOCAINE 1% (10MG/ML) FOR IV START INTRADERMA PRN; -ONDANSETRON 4 MG/2 ML VIAL IVP ONE; -ceFAZolin 3 GM in SODIUM CHLORIDE 0.9% 100 ML IVPB PRN
[2022-05-07 11:04] VITALS: RESP 16; TEMP 97
[2022-05-07] MEDS ORDERED: LACTATED RINGERS 1,000 ML IV ONE (11:10)
[2022-05-07 11:17] LABS: Glucose,Whole Blood 104 mg/dL (70-110)
[2022-05-07] MEDS ORDERED: DEXAMETHASONE SOD PHOSPHATE 10 MG/ML 1 ML VIAL ONE (11:48)
[2022-05-07] MEDS ORDERED: fentaNYL (PF) 50 MCG/ML 2 ML AMP ONE (11:48)
[2022-05-07] MEDS ORDERED: IOPAMIDOL M200 10 ML VIAL ONE (11:48)
[2022-05-07] MEDS ORDERED: MIDAZOLAM 2 MG/2 ML VIAL ONE (11:48)
[2022-05-07] MEDS ORDERED: IV FLUID CONTINUATION 1,000 ML IV ONE (12:25)
--- NOTE | 2022-05-07 12:29 | P.PCN ---
Date of Procedure: 05/07/22 Procedure(s) Performed: PREOPERATIVE DIAGNOSIS: 1-cervical radiculopathy . 2-cervical degenerative disc disease. 3-cervical spondylosis with cervical facet arthropathy POSTOPERATIVE DIAGNOSIS: Same as preoperative diagnoses. PROCEDURE 1. Transforaminal epidural steroid injection under fluoroscopic guidance at right C6-7 level. (Fluoroscopy images stored on file in the radiology Department ) 2. Cervical epidurogram . ANESTHESIA: Local with 1% lidocaine 3 ml , moderate sedation with intravenous Versed 2 mg and fentanyle 100 micrograms. Sedation start time : 1150 . Sedation. stop time : 1217 . EBL: Minimal PROCEDURE INDICATION: The patient with low back pain and radiculopathy symptoms unresponsive to conservative treatment. PROCEDURE DESCRIPTION / TECHNIQUE: The patient was seen and identified in the preoperative area. Risks, benefits, complications, and alternatives were discussed with the patient. The patient agreed to proceed with the procedure and signed the consent. IV was started, and vital signs were stable. Patient was taken to the OR and time out was completed. The patient was placed in the supine position on procedure table . The cervical area was prepped and draped in the usual sterile fashion. Critical pause was taken. Vital signs were closely monitored during the procedure. Conscious sedation was used during the procedure to decrease patient s anxiety. Using oblique fluoroscopy, the chin of the ``[place] dog at Right C6-7 level was identified, and the skin and deeper tissues just below was localized with 1% lidocaine. Subsequently, a 22-gauge 3.5-inch spinal needle was advanced under a tunneled view fluoroscopic guidance just underneath the chin of the ``[place] dog at the right C6-7 Under lateral fluoroscopy, the needle was then advanced to the posterior border of the interforaminal space. After negative aspiration of CSF and blood and with no paresthesias, 1 mL Isovue 200 contrast dye was injected excellent epidurogram and outlining of the nerve root Subsequently, 3 mL of block solution containing 20 mg Dexamethasone and 1 mL of 0.9% normal saline PF was injected. Needle was removed . At the end of the procedure, skin was cleansed, and bandages were applied. COMPLICATIONS:none DISPOSITION / PLANS: The patient was placed in a supine position and transferred to the recovery area in a stable condition for observation. There was no evidence of lower extremity motor or sensory deficit after the procedure. Patient was discharged from the recovery room after meeting discharge criteria. Home discharge instructions were given to the patient by the staff. The patient was reexamined prior to discharge.
[2022-05-07 12:42] VITALS: BP 143/85; PULSE 84
--- NOTE | 2022-05-07 12:50 | FL ---
Fluoroscopy HISTORY: Pain 30 seconds fluoroscopy time supplied to the referring clinician. 3 intraoperative C-arm images docum ent the procedure. See dictated report from anesthesia.
== END 2022-05-07 12:52 | disposition home or self-care (01) ==
LOC: ORPAIN 10:38
PROVIDERS: ATTEND Specialist
DX: M50.123 Cervical disc disorder at C6-C7 level with radiculopathy (principal); M47.22 Other spondylosis with radiculopathy, cervical region
CPT/HCPCS: 99152; 99153; 64479; J2250; J1100; J3010; Q9966; 64483

== ENCOUNTER → 2022-05-25 | Outpatient (CLI) | payer OTHER ==
--- NOTE | 2022-05-25 09:30 | XR ---
EXAMINATION TYPE: XR chest 2V DATE OF EXAM: 05/25/2022 COMPARISON: 01/14/2018 TECHNIQUE: PA and lateral views submitted. HISTORY: Shortness of breath FINDINGS: The lungs are clear and there is no pneumothorax, pleural effusion, or focal pneumonia. Hypertrophi c and degenerative changes. Heart size normal. No overt failure. Hyperinflation suggests COPD. Hypert rophic and degenerative changes of the spine. IMPRESSION: 1. Correlate for COPD.
== END | disposition home or self-care (01) ==
LOC: RADXRWHC 08:43
PROVIDERS: ATTEND Family Medicine
DX: R06.02 Shortness of breath (principal); F17.210 Nicotine dependence, cigarettes, uncomplicated
CPT/HCPCS: 71046

== ENCOUNTER → 2022-05-25 | Outpatient (CLI) | payer OTHER ==
[2022-05-25 08:28] VITALS: BP 165/107; PULSE 86; RESP 18; TEMP 98.1
--- NOTE | 2022-05-25 14:37 | P.PAINPG ---
Objective - Vital Signs Vital signs: Intake & Output 05/24/22 05/25/22 05/25/22 18:59 06:59 18:59 Weight 131.542 kg PQRS Measure Charge Sheet Comment: A 56 yr old male with a history of severe and chronic neck pain secondary to cervical DDD and spondylosis with facet arthropathy without myelopathy presents today for evaluation s/p R TFESI C6-7. Pt states he experienced 25% pain relief x 2-3 wks s/p procedure. Pain level is at 10/10 in intensity, constant, dull in character w shooting towards the R hand & fingers. Pain is provoked by rotation and hyperextension. Pain is alleviated with PT x 4 sessions in 2020 which provoked pain, home exercise regimen, massage at home, chiropractic treatments which provoked pain, heat, ice, medications (Tyl, Ibu), topicals, repositioning and rest. Interventional pain procedures completed include R TFESI C6-7 Patient is currently on Tylenol, Ibuprofen Patient denies any side effects of the medication(s), denies excessive drowsiness or sleepiness, denies suicidal ideation and reports that the current pain medication is helping to control the pain and improve activities of daily living. Patient denies any motor or sensory deficits. Patient denies any fever or night sweats, denies any change in the bowel movements or urination. Physical Examination: -Constitutional: Cooperative. Not in acute distress . - Neurologic: Cranial nerve II to XII intact. No focal neurological deficits. - Psychatric: Alert & oriented x 3. Matching mood & appropriate affect. Judgment and insight intact. - Musculoskeletal: Cervical spine: Muscle bulk/ tone/ strength in the bilateral upper extremities normal Vertebral body tenderness to palpation over Spurling test positive Distraction test positive Facet loading test positive Thoracic spine Muscle bulk / tone/ strength in the bilateral paraspinal muscles normal Vertebral body tender to palpation over Facet loading test positive Lumbar spine: Motor bulk/ tone/ strength lower extremities , thigh and legs : 5/5 Deep tendon reflexes : Normal Knee Jerk. Normal Ankle Jerk . Vertebral body tenderness to palpation over Lumbar Facet Loading Test positive Straight Leg Raise: positive at 30 degrees right side/ left side Gaenslen's Test positive Sacral spine : Severe tenderness over the Sacroiliac joint: right side / left side Range of motion: Flexion of the lumbar spine <60 degrees Range of motion: Extension of the lumbar spine <20 degrees Gaenslen's Test positive Chelsey test: positive right side / left side Thigh Thrust Test Sacral Thrust Test Assessment and plan: Chronic neck pain secondary to cervical degenerative disc disease, spondylosis with facet arthropathy without myelopathy Pt did not exhibit sufficient pain relief s/p procedure. He has an appt w Dr Sotomayor on 06/19 to explore additional treatment options. All patient questions answered I have spent less than 30 minutes on patient care today. Dr Radford was available by phone for the evaluation of this patient. The time was used to review the medical records including relevant urine studies and Prescription history (MAPs), review of the available imaging, evaluation and examination of the patient, coordination of care with the medical staff and if applicable refe rring physicians, as well as creation of the medical record PQRS Narrative: Smoking Status Current every day smoker Hx Alcohol Use (MH) Yes: ONCE A WEEK Home Medications: Ambulatory Orders Dextroamphetamine/Amphetamine [Adderall] 30 mg PO BID 01/13/18 amLODIPine [Norvasc] 5 mg PO DAILY 02/13/22 Pregabalin [Lyrica] 50 mg PO BID 05/05/22 Controlled Substance Measures - Controlled Substance Measures Is patient prescribed a controlled substance at discharge?: No
== END ==
LOC: PNWHC3 07:43
PROVIDERS: ATTEND Specialist
DX: M47.812 Spondylosis without myelopathy or radiculopathy, cervical region (principal); M50.30 Other cervical disc degeneration, unspecified cervical region; G89.29 Other chronic pain; F17.200 Nicotine dependence, unspecified, uncomplicated
CPT/HCPCS: 99211

== ENCOUNTER → 2022-12-21 | Outpatient (CLI) | payer OTHER ==
--- NOTE | 2022-12-21 15:58 | MR ---
EXAMINATION TYPE: MR lumbar spine wo con DATE OF EXAM: 12/21/2022 COMPARISON: MRI lumbar spine 09/30/2012 HISTORY: Low back pain, falling TECHNIQUE: Multiplanar, multisequence images of the lumbar spine were acquired without IV contrast. FINDINGS: Lumbar segments are intact. No paraspinal masses are identified. Conus medullaris has a normal appe arance. Grade 1 anterolisthesis of L4 on L5. Multilevel disc desiccation. T12-L1: No evidence for disc herniation. No significant central canal or neural foraminal stenosis. L1-L2: No evidence for disc herniation. Annular fissure suggested. Bilateral facet arthropathy and li gamentum flavum buckling contribute to mild central canal stenosis. The neural foramen are patent mia aterally. L2-L3: No evidence for disc herniation. Bilateral facet arthropathy and ligamentum flavum buckling co ntribute to [id number] central canal stenosis. Moderate right and moderate to severe left neura l foraminal stenosis. L3-L4: Broad-based disc bulge with ligamentum flavum buckling facet arthropathy contribute to moderat e-to-severe central canal stenosis. Moderate bilateral neural foraminal stenosis. L4-L5: Grade 1 anterolisthesis with uncovering of the disc. Broad-based disc bulge with facet arthrop athy and ligamentum flavum buckling contributing to moderate to severe central canal stenosis. Mild b ilateral neural foraminal stenosis. L5-S1: Central disc protrusion with minimal effacement of the anterior thecal sac bilateral facet art hropathy. Mild bilateral neural foraminal narrowing. IMPRESSION: 1. L5-S1 central disc herniation with minimal central canal stenosis. 2. Moderate multilevel degenerative disc disease and facet arthropathy resulting in L4-L5 moderate to severe central canal stenosis, L3-4 moderate to severe central canal stenosis with moderate bilatera l neural foraminal stenosis, and L2-L3 mild to moderate central canal stenosis with moderate right an d moderate to severe left neural foraminal stenosis. 3. Grade 1 anterolisthesis of L4 on L5.
== END | disposition home or self-care (01) ==
LOC: RADMRIMAIN 14:26
PROVIDERS: ATTEND Anesthesiology Addiction Medicine
DX: M47.26 Other spondylosis with radiculopathy, lumbar region (principal); M99.73 Connective tissue and disc stenosis of intervertebral foramina of lumbar region; M43.16 Spondylolisthesis, lumbar region
CPT/HCPCS: 72148

== ENCOUNTER → 2023-05-08 | Outpatient (CLI) | payer OTHER ==
--- NOTE | 2023-05-09 13:46 | MR ---
EXAMINATION TYPE: MR cervical spine wo con DATE OF EXAM: 05/08/2023 COMPARISON: HISTORY: Neck pain into both arms CONTRAST: Performed utilizing mL intravenous gadolinium contrast. TECHNIQUE: Multiplanar multiecho imaging on a 3.0 [place] magnet is performed through the cervical spin e. FINDINGS: The craniovertebral junction is normal. Vertebral body alignment is normal. C7-T1: No focal disc herniation or significant disc bulge is evident. No spinal canal stenosis or n eural foraminal stenosis is present. Some facet hypertrophy is present with mild left posterior later al thecal sac impression. This comes in close approximation with the spinal cord. No spinal canal daniel nosis or cord contact is evident. C6-7: There is a central focal disc herniation with mild anterior thecal sac compression. No cord con tact or cord deformity is evident. No spinal canal stenosis is present. Uncovertebral joint hypertrop hy is present with bilateral foraminal stenosis.. C5-6: No focal disc herniation or significant disc bulge is evident. No spinal canal stenosis or morales ral foraminal stenosis is present. C4-5: No focal disc herniation or significant disc bulge is evident. No spinal canal stenosis or morales ral foraminal stenosis is present. C3-4: No focal disc herniation or significant disc bulge is evident. No spinal canal stenosis or morales ral foraminal stenosis is present. C2-3: No focal disc herniation or significant disc bulge is evident. No spinal canal stenosis or morales ral foraminal stenosis is present. IMPRESSION: 1. Central disc herniation C6-C7 with mild anterior thecal sac impression. No cord contact or spinal canal stenosis present. 2. Uncovertebral joint hypertrophy contributing to bilateral foraminal stenosis C6-7.
== END | disposition home or self-care (01) ==
LOC: RADMRIMAIN 07:31
DX: M50.123 Cervical disc disorder at C6-C7 level with radiculopathy (principal); M47.22 Other spondylosis with radiculopathy, cervical region; M99.71 Connective tissue and disc stenosis of intervertebral foramina of cervical region
CPT/HCPCS: 72141

== ENCOUNTER 2024-02-24 07:30 | Day surgery (SDC) | payer OTHER ==
[~2024-02-24 07:30] MED LIST changes: +ACETAMINOPHEN TAB 500 MG TAB ONE; +DEXAMETHASONE SOD PHOSPHATE 4 MG/ML 1 ML VIAL ONE; +HEPARIN SODIUM,PORCINE 5,000 UNIT/ML 1 ML VIAL ONE; +LACTATED RINGERS 1,000 ML BAG ONE; -LACTATED RINGERS 1,000 ML IV SCH; +LIDOCAINE 1%-EPI 1:100,000 20 ML VIAL ONE; +MELOXICAM 7.5 MG TAB ONE; +ONDANSETRON 4 MG/2 ML VIAL ONE
[2024-02-24] MEDS ORDERED: fentaNYL (PF) 50 MCG/ML 2 ML AMP ONE (07:41)
[2024-02-24] MEDS ORDERED: DEXAMETHASONE SOD PHOSPHATE 10 MG/ML 1 ML VIAL ONE (07:41)
[2024-02-24] MEDS ORDERED: PHENYLEPHRINE 10 MG/ML VIAL ONE (07:41)
[2024-02-24] MEDS ORDERED: SUCCINYLCHOLINE CHLORIDE 200 MG/10 ML VIAL IV ONE (07:41)
[2024-02-24] MEDS ORDERED: PROPOFOL 10 MG/ML 20 ML VIAL IV ONE (07:41)
[2024-02-24] MEDS ORDERED: GLYCOPYRROLATE 0.2 MG/ML 2 ML VIAL ONE (07:41)
[2024-02-24] MEDS ORDERED: NEOSTIGMINE 1 MG/ML 10 ML VIAL ONE (07:41)
[2024-02-24] MEDS ORDERED: LIDOCAINE 1% INJ 10MG/ML (20 ML MDV) ONE (07:41)
[2024-02-24] MEDS ORDERED: MIDAZOLAM 2 MG/2 ML VIAL ONE (07:41)
[2024-02-24] MEDS ORDERED: ROCURONIUM 10 MG/ML (5 ML VIAL) IV ONE (07:41)
[2024-02-24] MEDS ORDERED: ALBUTEROL HFA INHALER INHALATION ONE (07:41)
== END 2024-02-24 10:50 ==
LOC: OR 07:30
PROVIDERS: ATTEND Surgery Plastic and Reconstructive Surgery
DX: R22.0 Localized swelling, mass and lump, head (principal); E66.01 Morbid (severe) obesity due to excess calories; F32.A Depression, unspecified; F90.9 Attention-deficit hyperactivity disorder, unspecified type; G89.29 Other chronic pain; I10 Essential (primary) hypertension; F12.90 Cannabis use, unspecified, uncomplicated; F17.210 Nicotine dependence, cigarettes, uncomplicated; Z68.39 Body mass index [BMI] 39.0-39.9, adult; Z79.899 Other long term (current) drug therapy

== ENCOUNTER → 2025-01-02 | Outpatient (CLI) | payer OTHER ==
[2025-01-02 15:07] LABS: Basophils # (A) 0.06 X 10*3/uL (0.00-0.10); Basophils % (A) 0.8 %; Eosinophils # (A) 0.18 X 10*3/uL (0.04-0.35); Eosinophils % (A) 2.4 %; HCT 48.4 % (39.6-50.0); HGB 15.5 g/dL (13.0-17.0); Lymphocytes # (A) 1.76 X 10*3/uL (0.90-5.00); Lymphocytes % (A) 23.5 %; MCH 28.8 pg (27.0-32.0); Mean Platelet Volume 11.3 FL (9.5-12.2); Monocytes # (A) 0.64 X 10*3/uL (0.20-1.00); Monocytes % (A) 8.5 %; NRBC Per 100 WBC 0 X 10*3/uL (0.00-0.01); Neutrophils % (A) 64.1 %; Platelet Count 274 X 10*3/uL (140-440); RBC 5.38 X 10*6/uL (4.40-5.60); RDW 14.6 % (11.5-14.5); WBC 7.49 X 10*3/uL (4.50-10.00)
[2025-01-02 15:26] LABS: ALT 46 U/L (10-49); AST 34 U/L (14-35); Albumin/Globulin Ratio 1.67 Ratio (1.60-3.17); Alkaline Phosphatase 103 U/L (41-126); Blood Urea Nitrogen 10.4 mg/dL (9.0-27.0); Calcium 8.9 mg/dL (8.7-10.3); Carbon Dioxide 26.1 mmol/L (21.6-31.8); Chloride 104 mmol/L (96-109); Chol/HDL Ratio 5.77 Ratio; Globulin 2.4 g/dL (1.6-3.3); Glucose 127 mg/dL (70-110); LDL Cholesterol,Calculated 143.4 mg/dL (0.0-131.0); Potassium 4.5 mmol/L (3.5-5.5); Sodium 142 mmol/L (135-145); Total Bilirubin 0.6 mg/dL (0.3-1.2); Total Protein 6.4 g/dL (6.2-8.2)
== END | disposition home or self-care (01) ==
LOC: LABWHC1 09:44
PROVIDERS: ATTEND Internal Medicine
DX: Z00.00 Encounter for general adult medical examination without abnormal findings (principal); Z11.59 Encounter for screening for other viral diseases; Z12.5 Encounter for screening for malignant neoplasm of prostate; R73.9 Hyperglycemia, unspecified
CPT/HCPCS: 36415; 80053; 80061; 83036; 84153; 84443; 85025; 86803

== ENCOUNTER → 2025-01-26 | Outpatient (CLI) | payer OTHER ==
--- NOTE | 2025-01-29 20:20 | CTL ---
EXAMINATION TYPE: CT Low Dose Lung DATE OF EXAM: 01/26/2025 11:54 AM COMPARISON: Radiograph 05/25/2022 CLINICAL INDICATION: Male, 59 years old with history of F17.210 nicotine dependence, Current smoker, 1 ppd x 30 years, History of tobacco use. TECHNIQUE: Low dose computed tomography scan was performed through the chest at 1 mm thick sections a nd reconstructed images in multiple planes at 1 mm and [address] DLP: 153.4 mGycm, CT CTDI: 4.3 mGy, Automated exposure control for dose reduction was used. CT DIAGNOSTIC QUALITY: Satisfactory FINDINGS: Heart normal size without pericardial effusion. LAD and RCA coronary artery calcifications are presen t. Minimal atherosclerotic arch calcifications. Bovine configuration to the aortic arch. Borderline caliber main right and left pulmonary arteries up to 2.5 cm. Findings may reflect underlyi ng pulmonary hypertension. No thoracic adenopathy by CT size criteria. Mild/moderate diffuse bronchial wall thickening. Mild emphysematous change. No consolidation or pleur al effusion. * 3 mm pulmonary nodule posteromedial left mid lung, axial image 144. * 2 mm posterior right lower lobe pulmonary nodule, axial image 23. Visualized upper abdomen shows low attenuation of the hepatic parenchyma. Bones: Visualized mid and lower thoracic spine. IMPRESSION: 1. LungRADS 2, benign. A couple tiny pulmonary nodules measuring up to 3 mm on baseline screening. 2. COPD with mild emphysema and possible pulmonary arterial hypertension. 3. Mild LAD and RCA coronary calcifications. 4. Possible underlying fatty infiltration of the liver. CT LUNG RAD AND CT CHEST RECOMMENDATION: Lung-Rad 2 Benign Appearance or Behavior: Continue annual sc reening with LDCT in 12 months. S Modifier (other clinically significant findings): None [facility], Workstation: [email or web address], 01/29/2025 8:18 PM
== END | disposition home or self-care (01) ==
LOC: RADCTMAIN 10:40
PROVIDERS: ATTEND Internal Medicine
DX: Z12.2 Encounter for screening for malignant neoplasm of respiratory organs (principal); F17.210 Nicotine dependence, cigarettes, uncomplicated; J43.9 Emphysema, unspecified; R91.8 Other nonspecific abnormal finding of lung field; I25.10 Atherosclerotic heart disease of native coronary artery without angina pectoris
CPT/HCPCS: 71271

== ENCOUNTER → 2025-02-06 | Outpatient (CLI) | payer OTHER ==
--- NOTE | 2025-02-06 13:47 | US ---
EXAMINATION TYPE: US thyroid st tissue head/neck DATE OF EXAM: 02/06/2025 COMPARISON: Thyroid ultrasound 02/12/2021, 01/20/2021, ultrasound thyroid FNA 03/12/2021 CLINICAL INDICATION: Male, 59 years old with history of [id number] NICOTINE DEPENDENCE; thyroid nodule TECHNIQUE: Grayscale and color Doppler imaging of the thyroid gland. FINDINGS: GLAND SIZE: Right Lobe: 6.1 x 2.5 x 2.5 cm Overall Parenchyma: homogeneous Left Lobe: 5.8 x 2.4 x 2.5 cm Overall Parenchyma: homogeneous Isthmus Thickness: .3 cm NODULES RIGHT: # of nodules measured on right: 1 1. 1.8 X 1.6 x 1.4 cm, lower medial, mixed cystic and solid, hypoechoic nodule, which is wider than tall, with smooth margins, without echogenic foci. TR 3 Prior size: 2.0 x 1.3 x 1.9 cm LEFT: # of nodules measured on left: 2 1. 1.4 X 1.1 x 1.2 cm, lower medial, solid or almost completely solid, hypoechoic nodule, which is wider than tall, with smooth margins, without echogenic foci. TR 4 Prior size: 1.4 x .9 x 1.1 cm 2. .6 X .5 x .6 cm, mid , solid or almost completely solid, hypoechoic nodule, which is wider than tall, with smooth margins, without echogenic foci. TR 4 Prior size: .6 x .5 x .6 cm ISTHMUS: # of nodules measured in the isthmus: 1 1. .9 X .8 x .6 cm solid or almost completely solid, hypoechoic nodule, which is wider than tall, w ith smooth margins, without echogenic foci. TR 4 Prior size: .6 x .5 x .7 cm Bilateral neck scanned, no evidence of lymphadenopathy. IMPRESSION: Mildly enlarged multinodular thyroid gland redemonstrated. Majority of the nodules are stable size ho wever there is marginal increase in size of a subcentimeter isthmus TR 4 nodule. This is below the th reshold for follow-up or biopsy. Highest TI-RADS level nodule reported: ACR TI-RADS LEVEL: TI-RADS 4: Follow if > 1 cm, FNA if > 1.5 cm TI-RADS assessment score and recommendation for follow-up based on appropriate scoring and treatment protocols. TR1 Benign No FNA TR2 Not suspicious No FNA TR3: If nodule size is ? 2.5 cm, FNA is recommended. If nodule size is ? 1.5 cm, follow-up imaging at 1, 3, and 5 years is recommended. TR4: If nodule size is ? 1.5 cm, FNA is recommended. If nodule size is ? 1.0 cm, follow-up imaging at 1, 2, 3, and 5 years is recommended. TR5: If nodule size is ? 1.0 cm, FNA is recommended. If nodule size is ? 0.5 cm, annual follow-up for up to 5 years is recommended. TR 1 thyroid nodules have a 0.3 % risk of malignancy. TR 2 thyroid nodules have a 1.5 % risk of malignancy. TR 3 thyroid nodules have a 4.8 % risk of malignancy. TR 4 thyroid nodules have a 9.1 % risk of malignancy. TR 5 thyroid nodules have a 35 % risk of malignancy. [email or web address] [facility], , 02/06/2025 1:45 PM
== END | disposition home or self-care (01) ==
LOC: RADUSWWP 12:46
PROVIDERS: ATTEND Internal Medicine
DX: E04.2 Nontoxic multinodular goiter (principal); F17.200 Nicotine dependence, unspecified, uncomplicated
CPT/HCPCS: 76536; 94060; 94726; 94729